=== PATIENT | female | born 1990 | race African-American/Black ===

== ENCOUNTER 2016-06-30 11:52 | Emergency (ER) | payer BC, OTHER ==
[2016-06-30 12:00] VITALS: BP 118/81; PULSE 77; TEMP 98.4; BMI 23.0
--- NOTE | 2016-06-30 13:12 | PDOC ---
"History of Present Illness - General Chief Complaint: Toothache Stated Complaint: TOOTHACHE Time Seen by Provider: 06/30/16 12:44 History Source: Patient Exam Limitations: No Limitations - History of Present Illness Initial Comments: 06/30/16 13:07 Chief complaint: Left lower molar pain since last night after losing filling History of present illness: Patient is a 25 year old female with no significant medical history here today reporting pain in left lower molar tooth #20 since losing a filling in it last night. Patient reports she was unable to sleep due to the pain. Patient took Tylenol prior to arrival here reports pain currently is a 5 out of 10. Patient reports the tooth is very sensitive to any liquids or food or touching it with her tongue. Patient was unable to the lower dentist today will go tomorrow. She does not have surrounding gum edema or any facial swelling. Timing/Duration: getting worse Severity: moderate Past History - Past Medical History Allergies/Adverse Reactions: Allergies Allergy/AdvReac Type Severity Reaction Status Date / Time No Known Allergies Allergy Verified 06/30/16 12:00 Home Medications: Ambulatory Orders Acetaminophen W/ Codeine #3 [Tylenol # 3 -] 1 tab PO Q6H PRN #5 tablet MDD 3 09/11 Thyroid Disease: No - Psycho/Social/Smoking Cessation Hx Anxiety: No Suicidal Ideation: No Smoking History: Never smoked Hx Alcohol Use: Yes (SOCIAL) Review of Systems - Review of Systems Able to Perform ROS?: Yes Constitutional: No: Symptoms Reported HEENTM: Yes: Dental Problems (tooth # 20) Respiratory: No: Symptoms reported Cardiac (ROS): No: Symptoms Reported ABD/GI: No: Symptoms Reported : No: Symptoms Reported Musculoskeletal: No: Symptoms Reported Integumentary: No: Symptoms Reported Neurological: No: Symptoms reported *Physical Exam - Vital Signs Last Vital Signs Temp Pulse Resp BP Pulse Ox 98.4 F 77 18 118/81 99 06/30/16 11:57 06/30/16 11:57 06/30/16 11:57 06/30/16 11:57 06/30/16 11:57 - Physical Exam General Appearance: Yes: Appropriately Dressed HEENT: positive: TMs Normal, Other (tooth # 20 tender to tap, part of filling repairs, no noted decay or surrounding erythema/edema of gum). negative: Pharyngeal Erythema, Tonsillar Exudate, Tonsillar Erythema Neck: negative: Lymphadenopathy (R), Lymphadenopathy (L) Respiratory/Chest: positive: Lungs Clear, Normal Breath Sounds. negative: Chest Tender, Respiratory Distress Cardiovascular: positive: Regular Rhythm, Regular Rate, S1, S2 Integumentary: positive: Normal Color Neurologic: positive: Alert, Normal Response, Responsive Medical Decision Making - Medical Decision Making 06/30/16 13:09 Patient is a 25 year old female with no significant medical history here today reporting pain in left lower molar tooth #20 since losing a filling in it last night. Patient reports she was unable to sleep due to the pain. Patient took Tylenol prior to arrival here reports pain currently is a 5 out of 10. Patient reports the tooth is very sensitive to any liquids or food or touching it with her tongue. Patient was unable to the lower dentist today will go tomorrow. She does not have surrounding gum edema or any facial swelling. Pt. denies any chance of . Toothache tooth #20 Plan: Tylenol with codeine No. 3 one tab every 6 hours 4 tablets Up with dentist tomorrow 06/30/16 13:12 Search Terms: Brianda petit, 1990 Search Date: 06/30/2016 01:12:27 PM The Drug Utilization Report below displays all of the controlled substance prescriptions, if any, that your patient has filled in the last twelve months. The information displayed on this report is compiled from pharmacy submissions to the Department, and accurately reflects the information as submitted by the pharmacies. This report was requested by: Maylin Millard | Reference #: [id number] *DC/Admit/Observation/Transfer Diagnosis at time of Disposition: Toothache - Discharge Dispostion Disposition: HOME Condition at time of disposition: Stable - Patient Instructions Additional Instructions: Follow-up for dentist as soon as possible Foods and fluids as tolerated Return to emergency room if symptoms worsen Patient voiced understanding of discharge instructions and all questions were answered"
== END 2016-06-30 13:20 | disposition home or self-care (01) ==
LOC: JERFT 11:52
DX: K08.89 Other specified disorders of teeth and supporting structures (principal)
CPT/HCPCS: 99281-25

== ENCOUNTER 2018-06-07 15:26 | Emergency (ER) | payer BC, OTHER ==
[2018-06-07 15:32] VITALS: BP 113/48; PULSE 117; TEMP 99.3; BMI 27.6
[2018-06-07] MEDS ORDERED: ACETAMINOPHEN 500 MG TABLET (FP) PO ONE (16:16)
[2018-06-07] MEDS ORDERED: ONDANSETRON *ODT* 4 MG TABLET SL ONE (16:16)
[2018-06-07] MEDS ORDERED: ACETAMINOPHEN 325 MG TABLET (FP) ONE (16:25)
[2018-06-07] MEDS ORDERED: ONDANSETRON *ODT* 4 MG TABLET ONE (16:25)
[2018-06-07 16:40] LABS: URINE APPEARANCE CLEAR; URINE BILIRUBIN NEGATIVE (<2.0 mg/dL); URINE COLOR YELLOW; URINE GLUCOSE (UA) NEGATIVE (NEGATIVE); URINE KETONE 2+ (NEGATIVE); URINE LEUK ESTERASE 1+ (NEGATIVE); URINE NITRITE NEGATIVE (NEGATIVE); URINE PROTEIN 1+ (NEGATIVE); URINE UROBILINOGEN 4.0 E.U/dl mg/dL (0.2-1.0)
[2018-06-07 16:51] LABS: EPI CELLS RARE /HPF (FEW); URINE MUCUS RARE
--- NOTE | 2018-06-07 17:05 | PDOC ---
History of Present Illness - General Chief Complaint: Nausea/Vomiting Stated Complaint: COLD SYMPTOMS Time Seen by Provider: 06/07/18 16:04 History Source: Patient Exam Limitations: No Limitations - History of Present Illness Initial Comments: 06/07/18 17:03 27-year-old female currently 30 weeks presents to ED with complaint of fever chills, cough, nasal congestion and dysuria since yesterday morning. Patient denies taking medication denies abdominal pain. Pt states with no complications. Timing/Duration: 24 hours Severity: moderate Associated Symptoms: reports: fever/chills, weakness Past History - Travel Traveled outside of the country in the last 30 days: No Close contact w/someone who was outside of country & ill: No - Past Medical History Allergies/Adverse Reactions: Allergies Allergy/AdvReac Type Severity Reaction Status Date / Time No Known Allergies Allergy Verified 06/07/18 15:30 COPD: No Thyroid Disease: No - Reproductive History Is Patient Now?: Yes (30 weeks preg) - Suicide/Smoking/Psychosocial Hx Smoking History: Never smoked Hx Alcohol Use: Yes (SOCIAL) Patient Lives Alone: No Lives with/in: spouse/SO Review of Systems - Review of Systems Able to Perform ROS?: Yes Constitutional: Yes: Fever, Weakness HEENTM: No: Symptoms Reported Respiratory: No: Symptoms reported Cardiac (ROS): No: Symptoms Reported ABD/GI: Yes: Nausea : Yes: Dysuria. No: Discharge, Frequency, Flank Pain Musculoskeletal: No: Symptoms Reported Integumentary: No: Symptoms Reported Neurological: No: Symptoms reported Hematologic/Lymphatic: No: Symptoms Reported *Physical Exam - Vital Signs Last Vital Signs Temp Pulse Resp BP Pulse Ox 99.3 F 117 H 18 113/48 L 99 06/07/18 15:30 06/07/18 15:30 06/07/18 15:30 06/07/18 15:30 06/07/18 15:30 - Physical Exam General Appearance: Yes: Nourished, Appropriately Dressed. No: Apparent Distress HEENT: positive: TMs Normal, Pharynx Normal. negative: Pale Conjunctivae Respiratory/Chest: positive: Lungs Clear, Normal Breath Sounds. negative: Respiratory Distress, Accessory Muscle Use Cardiovascular: positive: Regular Rhythm, Tachycardia. negative: Murmur Gastrointestinal/Abdominal: positive: Normal Bowel Sounds, Soft. negative: Tenderness Musculoskeletal: negative: CVA Tenderness Integumentary: positive: Normal Color, Warm, Moist Neurologic: positive: Motor Strength 5/5 (ambulatory) Moderate Sedation - Procedure Monitoring Vital Signs: Procedure Monitoring Vital Signs Temperature 99.3 F 06/07/18 15:30 Pulse Rate 117 H 06/07/18 15:30 Respiratory Rate 18 06/07/18 15:30 Blood Pressure 113/48 L 06/07/18 15:30 O2 Sat by Pulse Oximetry (%) 99 06/07/18 15:30 ED Treatment Course - ADDITIONAL ORDERS Additional order review: Laboratory Results 06/07/18 16:20 Urine Color Yellow Urine Appearance Clear Urine pH 7.0 D Ur Specific [place] 1.021 Urine Protein 1+ H Urine Glucose (UA) Negative Urine Ketones 2+ H Urine Blood Negative Urine Nitrite Negative Urine Bilirubin Negative Urine Urobilinogen 4.0 e.u/dl H Ur Leukocyte Esterase 1+ H Urine WBC (Auto) 19 Urine RBC (Auto) 1 Ur Epithelial Cells Rare Urine Mucus Rare - Medications Given in the ED: ED Medications Discontinued Medications Generic Name Dose Route Start Last Admin Trade Name Freq PRN Reason Stop Dose Admin Acetaminophen 975 mg 06/07/18 16:16 06/07/18 16:21 Tylenol - PO 06/07/18 16:17 975 mg ONCE ONE Administration Ondansetron HCl 4 mg 06/07/18 16:16 06/07/18 16:21 Zofran Odt - SL 06/07/18 16:17 4 mg ONCE ONE Administration Medical Decision Making - Medical Decision Making 06/07/18 16:04 Chief complaint: Fever chills, nasal congestion and cough along with dysuria since yesterday morning. Exam: No acute findings. Patient tachycardic with a low-grade temp. Plan: Influenza swab, Zofran, Tylenol urinalysis urine culture. 06/07/18 17:07 Laboratory Tests 06/07/18 06/07/18 16:20 16:35 Urine Protein 1+ H Urine Blood Negative Urine Nitrite Negative Urine Bilirubin Negative Urine Urobilinogen 4.0 e.u/dl H Ur Leukocyte Esterase 1+ H Urine WBC (Auto) 19 Influenza A (Rapid) Negative Influenza B (Rapid) Negative Patient will be discharged home with Keflex. Revitalized. *DC/Admit/Observation/Transfer Diagnosis at time of Disposition: UTI (urinary tract infection) - Discharge Dispostion Disposition: HOME Condition at time of disposition: Improved - Referrals - Patient Instructions Printed Discharge Instructions: DI for Urinary Tract Infection (UTI) Additional Instructions: Please take medication as prescribed. Take Tylenol for pain and fever. - Post Discharge Activity
== END 2018-06-07 17:25 | disposition home or self-care (01) ==
LOC: JER 15:26
DX: O26.893 Other specified pregnancy related conditions, third trimester (principal); O23.33 Infections of other parts of urinary tract in pregnancy, third trimester; Z3A.30 30 weeks gestation of pregnancy
CPT/HCPCS: 81003; 81015; 87077; 87086; 87804; 99283-25; Q0162

== ENCOUNTER 2024-11-28 19:06 | Emergency (ER) | payer OTHER ==
[2024-11-28 19:15] VITALS: BP 122/88; PULSE 92; RESP 18; TEMP 98.6; BMI 24.3
[2024-11-28] MEDS ORDERED: IBUPROFEN 600 MG TABLET (FP) PO ONE (21:02)
[2024-11-28] MEDS: IBUPROFEN 600 MG TABLET (FP) PO ONE (21:07)
== END 2024-11-28 22:47 | disposition home or self-care (01) ==
LOC: JERFT 19:06
DX: R07.89 Other chest pain (principal); R20.2 Paresthesia of skin; R00.2 Palpitations
CPT/HCPCS: 71046-TC-FY; 93005; 93010; 99284-25